=== PATIENT | male | born 1985 | race African-American/Black ===

== ENCOUNTER 2016-11-20 19:35 | Emergency (ER) | payer OTHER ==
[2016-11-20] MEDS ORDERED: Ibuprofen TAB* 600 MG PO ONE (22:42)
--- NOTE | 2016-11-20 23:13 | RAD ---
Indication: Chest pain. 2 views of the chest demonstrate no mediastinal shift. Heart is of normal size and configuration. Lungs are clear. No prior study is available for comparison. IMPRESSION: No active cardiopulmonary disease is noted.
[2016-11-20 23:32] LABS: Hematocrit 41 % (42-52); Hemoglobin 13.7 g/dl (14.0-18.0); Mean Corpuscular HGB Conc 33 g/dl (31-36); Mean Corpuscular Hemoglobin 26 pg (27-31); Mean Corpuscular Volume 79 fL (80-94); Mean Platelet Volume 8 um3 (7.4-10.4); Red Blood Count 5.21 10^6/ul (4.0-5.4); Red Cell Distribution Width 13 % (10.5-15); White Blood Count 4.9 10^3/ul (3.5-10.8)
[2016-11-20 23:36] LABS: Add Diff/Slide Review? Slide Review Added; Comments Flag Yes
[2016-11-20 23:50] LABS: Albumin 4.2 g/dL (3.2-5.2); Calcium 9.2 mg/dL (8.6-10.3); EGFR African American 113.6 (>60); EGFR Non-African American 88.3 (>60); Globulin 3.6 g/dL (2-4); Potassium 3.9 mmol/L (3.5-5.0); Total Bilirubin 0.5 mg/dL (0.2-1.0); Total Protein 7.8 g/dL (6.4-8.9)
[2016-11-21 00:53] VITALS: BP 118/70
--- NOTE | 2016-11-21 03:37 | ED ---
Mendoza Thornton Rebecca, scribed for René Rubiouel on 11/20/16 at 2239 . HPI Chest Pain - HPI Summary HPI Summary: Pt is a 31 y/o M who presents to ED with a CC of CP. Pain began suddenly at 0900 this morning and has been intermittent since onset. Initially, pain lasted for a few seconds and episodes are now approximately 30 minutes. Pain is in the left anterior region without any radiation. Pain is currently mild, ranked 1/10 and characterized as an aching. Sx aggravated by movement, alleviated by nothing , unchanged by deep breaths. Additionally c/o nausea. Denies V/D, SOB, cough, fever. - History of Current Complaint Chief Complaint: EDChestPainROMI Time Seen by Provider: 11/20/16 22:36 Hx Obtained From: Patient Onset/Duration: Started Hours Ago, Still Present Time of Onset: 09:00 Timing: Intermittent, Lasting Minutes - 30 minutes Initial Severity: Mild Current Severity: Mild Pain Intensity: 1 Pain Scale Used: 0-10 Numeric Chest Pain Location: Left Anterior Chest Pain Radiates: No Character: Dull/Aching Aggravating Factor(s): Movement Alleviating Factor(s): Nothing Associated Signs and Symptoms: Positive: Nausea, Other: - Denies diarrhea. Negative: Shortness of Breath, Fever, Cough, Vomiting - Allergy/Home Medications Allergies/Adverse Reactions: Allergies Allergy/AdvReac Type Severity Reaction Status Date / Time No Known Allergies Allergy Verified 06/14/15 13:37 Home Medications: Home Medications Pseudoephedrine-Naproxen Sodiu [Aleve-D Sinus & Headache] 1 tab PO 11/20/16 [ History] PMH/Surg Hx/FS Hx/Imm Hx Endocrine/Hematology History: Denies: Hx Diabetes Cardiovascular History: Denies: Hx Hypertension, Hx Pacemaker/ICD Respiratory History: Denies: Hx Asthma History: Denies: Hx Renal Disease Sensory History: Denies: Hx Hearing Aid Psychiatric History: Denies: Hx Panic Disorder Infectious Disease History: No Infectious Disease History: Denies: Traveled Outside the [place] in Last 30 Days - Family History Known Family History: Negative: Cardiac Disease, Hypertension - Social History Alcohol Use: Rare Substance Use Type: Reports: None Smoking Status (MU): Never Smoked Tobacco Review of Systems Negative: Fever Positive: Chest Pain - left anterior Negative: Shortness Of Breath, Cough Positive: Nausea. Negative: Vomiting, Diarrhea All Other Systems Reviewed And Are Negative: Yes Physical Exam Triage Information Reviewed: Yes Vital Signs On Initial Exam: Initial Vitals Temp Pulse Resp BP Pulse Ox 98.4 F 63 14 126/84 100 11/20/16 19:53 11/20/16 19:53 11/20/16 19:53 11/20/16 19:53 11/20/16 19:53 Vital Signs Reviewed: Yes Appearance: Positive: Well-Appearing, No Pain Distress Skin: Positive: Warm, Skin Color Reflects Adequate Perfusion, Dry Eyes: Positive: EOMI, CHRIS ENT: Positive: Normal ENT inspection Neck: Positive: Supple, Nontender Respiratory/Lung Sounds: Positive: Clear to Auscultation, Decreased Breath Sounds Cardiovascular: Positive: RRR, Pulses are Symmetrical in both Upper and Lower Extremities, Rub Abdomen Description: Positive: Nontender, Soft Bowel Sounds: Positive: Present Musculoskeletal: Positive: Normal, Strength/ROM Intact, Pain @ - Tenderness over the left costochodral region Neurological: Positive: Normal, Sensory/Motor Intact, Alert, Oriented to Person Place, Time Diagnostics - Vital Signs Vital Signs Temp Pulse Resp BP Pulse Ox 11/20/16 19:53 98.4 F 63 14 126/84 100 - Laboratory Result Diagrams: 11/20/16 23:14 11/20/16 23:14 Lab Statement: Any lab studies that have been ordered have been reviewed, and results considered in the medical decision making process. - Radiology CXR Xray Interpretation: No Acute Changes Radiology Interpretation Completed By: Radiologist - EKG 194 Cardiac Rate: Bradycardia - 54 bpm EKG Rhythm: Sinus Bradycardia EKG Interpretation: Early repolarization changes Chest Pain Course/Dx - Course Assessment/Plan: Pt is a 31 y/o M with a CC of intermittent left anterior CP since 0900 this morning. Additionally c/o nausea. Denies V/D, SOB, cough, fever. EKG reveals sinus bradycardia with early repolarization changes. CXR reveals no active cardiopulmonary disease. Troponin is 0.00. Pt will be D/C to home with a dx of chest pain and musculoskeletal chest pain. - Diagnoses Provider Diagnoses: Chest pain, Musculoskeletal chest pain Discharge - Discharge Plan Condition: Stable Disposition: HOME Patient Education Materials: Chest Pain (ED), Musculoskeletal Pain (ED) Referrals: [facility] LORA Sheets [Primary Care Provider] - 3 Days (Follow up with your primary care physician in the next 3 days. ) The documentation as recorded by the Mendoza brenner Rebecca accurately reflects the service I personally performed and the decisions made by , Mayur Rubio.
== END 2016-11-21 00:53 | disposition home or self-care (01) ==
LOC: ED 19:35
DX: R07.9 Chest pain, unspecified (principal); R19.7 Diarrhea, unspecified; R11.2 Nausea with vomiting, unspecified
CPT/HCPCS: 36415; 71020; 80053; 83880; 84484; 85025; 85379; 85610; 85730; 93005; 99283; A9270-GY